=== PATIENT | female | born 1995 | race African-American/Black ===

== ENCOUNTER 2020-12-27 16:30 | Emergency (ER) | payer OTHER ==
[~2020-12-27] VITALS: Ht 154.9 cm; Wt 88.6 kg
[2020-12-27] MEDS ORDERED: OXYMETAZOLINE 0.05% NASAL SPRAY 30ML BOTTLE. NS ONE (17:00)
--- NOTE | 2020-12-27 17:56 | PHYS DOC ---
Past History Past Medical History: Hypertension (JAEL BAUER APRN) Past Surgical History: No Surgical History (JAEL BAUER APRN) Alcohol Use: None (JAEL BAUER APRN) General Adult EDM: Chief Complaint: NOSEBLEED HPI: HPI: Patient is a 25-year-old female who presents with nosebleed. Patient states that she was at home when her nose started bleeding and she was unable to get it to stop. Patient states that her nose was bleeding for 3 hours prior to arrival to the emergency room. Patient denies known trauma. Denies recent illness. Denies being on blood thinners. "I got my Covid vaccine yesterday". Has history of hypertension. (JAEL BAUER APRN) Review of Systems: Review of Systems: Constitutional: Denies fever or chills Eyes: Denies change in visual acuity HENT: Reports nasal bleeding Respiratory: Denies cough or shortness of breath Cardiovascular: Denies chest pain or edema GI: Denies abdominal pain, nausea, vomiting, bloody stools or diarrhea : Denies dysuria Musculoskeletal: Denies back pain or joint pain Integument: Denies rash Neurologic: Denies headache, focal weakness or sensory changes Endocrine: Denies polyuria or polydipsia Lymphatic: Denies swollen glands Psychiatric: Denies depression or anxiety (JAEL BAUER APRN) Current Medications: Current Meds: Current Medications Medications (Trade) Dose Ordered Sig/Aide Start Time Stop Time Status Last Admin Dose Admin Oxymetazoline HCl (Afrin) 2 spray 1X ONCE 12/27/20 17:00 12/27/20 17:01 DC (JAEL BAUER APRN) Allergies: Allergies: Allergies Coded Allergies Type Severity Reaction Last Updated Verified No Known Drug Allergies 12/27/20 No (JAEL BAUER APRN) Physical Exam: PE: Constitutional: Well developed, well nourished, no acute distress, non-toxic appearance. [] HENT: bilateral external ears normal, oropharynx moist, no oral exudates, right nostril bleeding Eyes: PERRLA, EOMI, conjunctiva normal, no discharge. [] Neck: Normal range of motion, no tenderness, supple, no stridor. [] Cardiovascular:Heart rate regular rhythm, no murmur [] Lungs & Thorax: Bilateral breath sounds clear to auscultation [] Abdomen: Bowel sounds normal, soft, no tenderness, no masses, no pulsatile masses. [] Skin: Warm, dry, no erythema, no rash. [] Back: No tenderness, no CVA tenderness. [] Extremities: No tenderness, no cyanosis, no clubbing, ROM intact, no edema. [] Neurologic: Alert and oriented X 3, normal motor function, normal sensory function, no focal deficits noted. [] Psychologic: Anxious mood (JAEL BAUER APRN) Current Patient Data: Vital Signs: Vital Signs Date Time Temp Pulse Resp B/P (MAP) Pulse Ox O2 Delivery O2 Flow Rate FiO2 12/27/20 17:02 98.2 116 18 175/123 (140) 100 Room Air (JAEL BAUER APRN) EKG: EKG: [] (JAEL BAUER APRN) Radiology/Procedures: Radiology/Procedures: [] (JAEL BAUER APRN) Heart Score: C/O Chest Pain: No Risk Factors: Risk Factors: DM, Current or recent (<one month) smoker, HTN, HLP, family history of CAD, obesity. Risk Scores: Score 0 - 3: 2.5% MACE over next 6 weeks - Discharge Home Score 4 - 6: 20.3% MACE over next 6 weeks - Admit for Clinical Observation Score 7 - 10: 72.7% MACE over next 6 weeks - Early Invasive Strategies (JAEL BAUER APRN) Course & Med Decision Making: Course & Med Decision Making Pertinent Labs and Imaging studies reviewed. (See chart for details) 25-year-old female who presents with a nosebleed. Patient states that she was unable to get the bleeding to stop so she came to the emergency room. Patient was given Afrin nose spray and a nose clamp was applied. Patient left clamp on for 20 minutes. Once patient removed the clamp her nose continued to bleed. We repeated the process a second time ,after 20 minutes bleeding was controlled. Patient is hemodynamically stable. Discussed discharge instructions and return precautions. Patient states that she understands discharge plan. (JAEL BAUER APRN) Dragon Disclaimer: Dragon Disclaimer: This electronic medical record was generated, in whole or in part, using a voice recognition dictation system. (JAEL BAUER APRN) Attending Co-Sign The patient was seen and interviewed as well as examined at the bedside. The chart was reviewed. The case was discussed. Agree with the plan of care. (ADONIS HEART DO) Departure Departure: Impression: Primary Impression: Epistaxis Disposition: HOME / SELF CARE / HOMELESS Condition: STABLE Referrals: MIREYA ESTRADA MD (PCP) Patient Instructions: Nosebleed, [id number] Additional Instructions: Please return to the emergency room for bleeding that is not controlled by pressure, you start running a fever, have difficulty breathing, or vomiting. Avoid any nose blowing for 12 hours after the bleeding stops. Avoid nose picking or putting anything into the nose. If bleeding starts again, sit up and lean forward, pinch the soft part of the nose tightly for 10 minutes without letting go. You can put a small amount of pressure on jelly or antibiotic ointment inside the nostril 2 times a day for 4 to 5 days. You can use a humidifier at home and also use Afrin for 2 days please EMERGENCY DEPARTMENT GENERAL DISCHARGE INSTRUCTIONS Thank you for coming to [facility] ([facility]) today and trusting us with you care. We trust that you had a positivie experience in our Emergency Department. If you wish to speak to the department management, you may call the director at [phone]. YOUR FOLLOW UP INSTRUCTIONS ARE FOLLOWS: 1. Do you have a private Doctor? If you do not have a private doctor, please ask for a resource list of physicians or clinics that may be able to assist you with follow up care. 2. The Emergency Physician has interpreted your x-rays. The X-Ray specialist will also review them. If there is a change in the findings, you will be notified in 48 hours when at all possible. 3. A lab test or culture has been done, your results will be reviewed and you will be notified if you need a change in treatment. ADDITIONAL INSTRUCTIONS AND INFORMATION: 1. Your care today has been supervised by a physician who is specially trained in emergency care. Many problems require more than one evaluation for a complete diagnosis and treatment. We recommend that you schedule your follow up appointment as recommended to ensure complete treatment of you illness or injury. If you are unable to obtain follow up care and continue to have a problem, or if your condition worsens, we recommend that you return to the ED. 2. We are not able to safely determine your condition over the phone nor are we able to give sound medical advice over the phone. For these safety reasons, if you call for medical advice we will ask you to come to the ED for further evaluation. 3. If you have any questions regarding these discharge instructions please call the ED at [phone]. SAFETY INFORMATION: In the interest of safety, wellness, and injury prevention; we encourage you to wear your sealbelt, if you smoke; quite smoking, and we encourage family to use a protective helmet for bicycling and other sporting events that present an increased risk for head injury. IF YOUR SYMPTOMS WORSEN OR NEW SYMPTOMS DEVELOP, OR YOU HAVE CONCERNS ABOUT YOUR CONDITION; OR IF YOUR CONDITION WORSENS WHILE YOU ARE WAITING FOR YOUR FOLLOW UP APPOINTMENT; EITHER CONTACT YOUR PRIMARY CARE DOCTOR, THE PHYSICIAN WHOSE NAME AND NUMBER YOU WERE GIVEN, OR RETURN TO THE ED IMMEDIATELY. JAEL BAUER APRN Dec 27, 2020 17:56 ADONIS HEART DO Dec 28, 2020 06:20
[2020-12-27 18:00] VITALS: BP 159/100
[2020-12-27] MEDS ORDERED: LABETALOL 20 MG/4 ML DISP.SYRIN. IVP ONE (18:30)
== END 2020-12-27 18:46 | disposition home or self-care (01) ==
LOC: ER 16:30
DX: R04.0 Epistaxis (principal)
CPT/HCPCS: 99282